=== PATIENT | female | born 1945 | race Caucasian/White ===

== ENCOUNTER 2017-05-20 06:08 | Emergency (ER) | payer MEDICARE, BC ==
[~2017-05-20] VITALS: Ht 167.6 cm; Wt 77.1 kg
[~2017-05-20 06:08] MED LIST: ATORVASTATIN CA20 MG PO; HYDROCHLOROTH12.5 MG PO; SYNTHROID50 MCG PO; VENLAFAXINE HCL75 MG PO
[2017-05-20 07:13] LABS: BASOPHILS # (AUTO) 0.1 (0.0-0.1); EOSINOPHILS # (AUTO) 0.6 (0.0-0.4); EOSINOPHILS % 8.1 % (0.0-6.0); HEMOGLOBIN 11.9 g/dL (12.0-16.0); LYMPHOCYTES # (AUTO) 2.1 (1.0-3.2); LYMPHOCYTES % 29.4 % (18.0-39.1); MEAN CORPUSCULAR HEMOGLOBIN 29.8 pg (28-32); MEAN CORPUSCULAR HGB CONC 33.1 g/dL (31-35); MONOCYTES # (AUTO) 0.5 (0.2-0.8); MONOCYTES % 7.2 % (4.4-11.3); NEUTROPHILS # (AUTO) 3.8 (2.1-6.9); NEUTROPHILS % 54.2 % (38.7-80.0); PLATELET COUNT 314 x10e3/uL (140-360); RED CELL DISTRIBUTION WIDTH 12.1 % (11.7-14.4)
[2017-05-20 07:56] LABS: ALANINE AMINOTRANSFERASE 22 IU/L (0-55); ALBUMIN 3.9 g/dL (3.5-5.0); ALBUMIN/GLOBULIN RATIO 1.1 (0.8-2.0); ALKALINE PHOSPHATASE 81 IU/L (40-150); AMYLASE 46 U/L (25-125); ANION GAP 13.3 mmol/L (8-16); BLOOD UREA NITROGEN 15 mg/dL (7-26); BUN/CREATININE RATIO 17 (6-25); CALCIUM 9.9 mg/dL (8.4-10.2); CARBON DIOXIDE 26 mmol/L (22-29); CHLORIDE 94 mmol/L (98-107); EST GLOMERULAR FILTRATION RATE > 60 ML/MIN (60-); GLUCOSE 102 mg/dL (74-118); LIPASE 12 U/L (8-78); POTASSIUM 3.3 mmol/L (3.5-5.1); SODIUM 130 mmol/L (136-145)
[2017-05-20 08:07] LABS: BILIRUBIN,URINE NEGATIVE (NEGATIVE); KETONES,URINE NEGATIVE (NEGATIVE); LEUKOCYTE ESTERASE ,URINE 2+ (NEGATIVE); NITRITE,URINE NEGATIVE (NEGATIVE); PROTEIN,URINE DIPSTICK NEGATIVE (NEGATIVE); URINE UROBILINOGEN 0.2 mg/dL (0.2 - 1)
[2017-05-20] MEDS ORDERED: KETOROLAC TROMETHAMINE 30 MG/ML VIAL IV STA (08:09)
[2017-05-20] MEDS ORDERED: DEXAMETHASONE SOD PHOS 10 MG/1 ML VIAL IV ONE (08:15)
[2017-05-20] MEDS ORDERED: CYCLOBENZAPRINE HCL 10 MG TAB PO ONE (08:15)
[2017-05-20] MEDS ORDERED: LIDOCAINE 5% PATCH TP SCH (09:00)
[2017-05-20 09:01] LABS: CLARITY,URINE HAZY (CLEAR); COLOR,URINE YELLOW (YELLOW)
--- NOTE | 2017-05-20 09:17 | Diagnostic Imaging Report ---
PROCEDURE:THORACIC SPINE 2VW COMPARISON:None. INDICATIONS:BACK PAIN FINDINGS:There is normal spinal alignment. No compressed vertebral body segments are identified. Minimal spurring of the midthoracic spine with associated disc space narrowing is present at several levels. No acute bony abnormality. No lytic or blastic process. CONCLUSION:Minimal degenerative changes of the midthoracic spine. Kashif Hicks D.O. Dictated by: Kashif Hicks D.O. on 05/20/2017 at 9:17 Electronically approved by: Kashif Hicks D.O. on 05/20/2017 at 9:17
[2017-05-20 09:21] LABS: BACTERIA,URINE RARE /HPF; EPITHELIAL CELLS,URINE RARE /LPF; TRANSITIONAL EPI CELLS,URINE RARE
[2017-05-20] MEDS ORDERED: CEFTRIAXONE SOD 1 GM VIAL IV ONE (09:30)
[2017-05-20] MEDS ORDERED: FENTANYL CITRATE/PF 100MCG/2 ML INJ IV ONE (10:15)
== END 2017-05-20 11:08 | disposition home or self-care (01) ==
LOC: ER 06:08
DX: M54.6 Pain in thoracic spine (principal); M47.894 Other spondylosis, thoracic region
CPT/HCPCS: 36415; 72070; 80053; 81001; 82150; 83690; 85025; 87086; 99284; J0696; J1100; J1885

== ENCOUNTER 2017-06-30 18:49 | Emergency (ER) | payer BC, MEDICARE ==
[~2017-06-30] VITALS: Ht 167.6 cm; Wt 77.1 kg
--- OUTSIDE RECORDS SUMMARY | 2017-06-30 18:52 | XMS REPORT | Clinical Summary ---
Author Author [facility] Organization [facility] Address Unknown Phone Unavailable Care Team Providers Care Presales Consultant Name Role Phone Phi Andrews MD PCP Allergies No Known Allergies Current Medications Prescription Sig. Disp. Refills Start End Date Status Date cholecalciferol, vitamin Take 2,000 Units by mouth Active D3, (VITAMIN D3) 2,000 2 (two) times a day. unit capsule capsule levothyroxine (SYNTHROID, Take 50 mcg by mouth Active LEVOXYL) 50 mcg tablet every morning. !!!!!BRAND NAME ONLY!!!!! acetaminophen (TYLENOL) Take 500 mg by mouth Active 500 MG tablet every 6 (six) hours as needed for mild pain. cefpodoxime (VANTIN) 100 TK 1 T PO Q 12 H 0 05/20/19 Active MG tablet 18 meloxicam (MOBIC) 15 mg TK 1 T PO QD 0 05/20/19 Active tablet 18 methylPREDNISolone TK PO UTD 0 05/20/19 Active (MEDROL DOSEPAK) 4 mg 18 tablet SYNTHROID 50 mcg TAKE 1 TABLET BY MOUTH 30 tablet 3 05/27/19 Active tabletIndications: ONCE EVERY MORNING 18 Acquired hypothyroidism valsartan-hydrochlorothia TAKE 1 TABLET BY MOUTH 30 tablet 3 05/27/19 Active zide (DIOVAN-HCT) DAILY 18 160-12.5 mg per tabletIndications: Essential hypertension atorvastatin (LIPITOR) 20 TAKE 1 TABLET(20 MG) BY 30 tablet 3 Active MG tabletIndications: MOUTH DAILY 18 Hyperlipidemia, unspecified hyperlipidemia type cyclobenzaprine Take 0.5 tablets (5 mg 25 tablet 0 06/11/19 Active (FLEXERIL) 10 mg total) by mouth 2 (two) 18 tabletIndications: Spinal times a day as needed for stenosis of lumbar region muscle spasms. with neurogenic claudication atorvastatin (LIPITOR) 20 Take 1 tablet (20 mg 90 tablet 3 02/13/20 05/01/19 Discontin MG tabletIndications: total) by mouth daily. 16 18 ued Hyperlipidemia, unspecified hyperlipidemia type SYNTHROID 50 mcg Take 1 tablet (50 mcg 90 tablet 3 02/13/20 Discontin tabletIndications: total) by mouth every 16 18 ued Acquired hypothyroidism morning. valsartan-hydrochlorothia Take 1 tablet by mouth 90 tablet 3 02/13/20 05/01/19 Discontin zide (DIOVAN-HCT) daily. 16 18 ued 160-12.5 mg per tabletIndications: Essential hypertension venlafaxine XR Take 1 capsule (75 mg 90 capsule 3 02/13/20 02/13/20 Discontin (EFFEXOR-XR) 75 MG 24 hr total) by mouth daily. 16 17 ued capsuleIndications: Depression, unspecified depression type omeprazole (PriLOSEC) 40 daily. 0 03/15/20 05/09/19 Discontin MG capsule 16 18 ued cholecalciferol, vitamin Take 2,000 Units by mouth 05/09/19 Discontin D3, (VITAMIN D3) 2,000 daily. 18 ued unit capsule capsule venlafaxine XR Take 1 capsule (37.5 mg 30 capsule 0 02/13/20 Discontin (EFFEXOR-XR) 37.5 MG 24 total) by mouth daily. 17 18 ued hr capsuleIndications: Depression, unspecified depression type venlafaxine XR TAKE ONE CAPSULE BY MOUTH 30 capsule 0 04/12/1905/09 Discontin (EFFEXOR-XR) 37.5 MG 24 ONCE DAILY 18 18 ued hr capsuleIndications: Depression, unspecified depression type atorvastatin (LIPITOR) 20 Take 1 tablet (20 mg 90 tablet 1 05/01/19 05/01/19 Discontin MG tabletIndications: total) by mouth daily. 18 18 ued Hyperlipidemia, unspecified hyperlipidemia type valsartan-hydrochlorothia Take 1 tablet by mouth 90 tablet 1 05/01/19 05/01/19 Discontin zide (DIOVAN-HCT) daily. 18 18 ued 160-12.5 mg per tabletIndications: Essential hypertension SYNTHROID 50 mcg Take 1 tablet (50 mcg 90 tablet 1 05/01/19 Discontin tabletIndications: total) by mouth every 18 18 ued Acquired hypothyroidism morning. atorvastatin (LIPITOR) 20 Take 1 tablet (20 mg 30 tablet 0 05/01/19 05/09/19 Discontin MG tabletIndications: total) by mouth daily. 18 18 ued Hyperlipidemia, unspecified hyperlipidemia type SYNTHROID 50 mcg Take 1 tablet (50 mcg 30 tablet 0 05/01/19 Discontin tabletIndications: total) by mouth every 18 18 ued Acquired hypothyroidism morning. valsartan-hydrochlorothia Take 1 tablet by mouth 30 tablet 0 05/01/19 05/09/19 Discontin zide (DIOVAN-HCT) daily. 18 18 ued 160-12.5 mg per tabletIndications: Essential hypertension atorvastatin (LIPITOR) 20 Take 20 mg by mouth 05/27/19 Discontin MG tablet nightly. Default OP ins 18 ued valsartan-hydrochlorothia Take 1 tablet by mouth 05/27/19 Discontin zide (DIOVAN-HCT) nightly. 18 ued 160-12.5 mg per tablet acetaminophen-codeine Take 1 tablet by mouth 30 tablet 0 05/10/19 (TYLENOL WITH CODEINE #3) every 4 (four) hours as 18 18 300-30 mg per tablet needed for moderate pain for up to 10 days. polyethylene glycol Take 17 g by mouth daily 30 packet 0 05/10/19 (MIRALAX) 17 gram packet for 30 days. As needed 18 18 for constipation levoFLOXacin (LEVAQUIN) Take 1 tablet (500 mg 2 tablet 0 05/10/19 500 MG tablet total) by mouth daily for 18 18 2 days. cyclobenzaprine TK 1 T PO Q 12 H 0 05/20/19 06/11/19 Discontin (FLEXERIL) 10 mg tablet 18 18 ued Active Problems Problem Noted Date Status post laparoscopic cholecystectomy 05/28/2017 Symptomatic cholelithiasis 05/09/2017 Pure hypercholesterolemia 02/12/2017 Need for hepatitis C screening test 02/15/2016 Acquired hypothyroidism 02/13/2016 Allergic Depression GERD (gastroesophageal reflux disease) Hyperlipidemia Hypertension Vitamin D deficiency Encounters Date Type Specialty Care Team Description 06/13/2017 Office Visit Orthopedic Surgery David Ramirez MD Lumbago of lumbar region with sciatica (Primary Dx) 06/11/2017 Hospital Radiology David Ramirez MD Spinal stenosis of Encounter thoracic region 06/11/2017 [facility] Radiology David Ramirez MD Spinal stenosis of lumbar Encounter region with neurogenic claudication 06/10/2017 Procedure Pass Radiology 06/10/2017 Procedure Pass Radiology 06/10/2017 Orders Only Orthopedic Surgery Lola Lopez MA Spinal stenosis of lumbar region with neurogenic claudication (Primary Dx) 06/10/2017 Orders Only Orthopedic Surgery Lola Lopez MA Spinal stenosis of thoracic region (Primary Dx); Spinal stenosis of lumbar region with neurogenic claudication 05/29/2017 Patient Quality Candida Del Rosario, RN Outreach 05/27/2017 Office Visit General Surgery Michael Lopez, Status post laparoscopic MD cholecystectomy (Primary Dx) 05/24/2017 Refill Family Medicine Dena Andrews Acquired hypothyroidism; MD Phi Essential hypertension; Hyperlipidemia, unspecified hyperlipidemia type 05/23/2017 Office Visit Orthopedic Surgery David Ramirez MD Bilateral low back pain with bilateral sciatica, unspecified chronicity (Primary Dx) 05/20/2017 Telephone Family Medicine Dena Andrews Left lower quadrant pain MD Phi (Primary Dx); Chronic low back pain, unspecified back pain laterality, with sciatica presence unspecified 05/10/2017 Anesthesia General Surgery João Juarez, CREDIT PRODUCT ANALYST Event 05/10/2017 Procedure Pass General Surgery 05/10/2017 Surgery General Surgery Michael Lopez, CHOLECYSTECTOMY, MD LAPAROSCOPIC 05/09/2017 Emergency General Surgery Candida Adamson-Sarah Smith MD Symptomatic - Jimmy Salamanca MD cholelithiasis (Primary 05/10/2017 Michael Lopez, Dx); Biliary colic 05/09/2017 Office Visit Family Dena Jansen Acute right flank pain MD Phi (Primary Dx) 05/08/2017 Telephone Internal Medicine Fern Andres LVN 05/01/2017 Telephone Family Medicine Dena Andrews HyperlipidemiaPhi MD unspecified hyperlipidemia type; Essential hypertension; Acquired hypothyroidism 04/30/2017 Telephone Family Medicine Dena Andrews MD 04/12/2017 Refill Family Medicine Dena Andrews Depression, unspecified MD Phi depression type 04/10/2017 Hospital Radiology Julian, Dena Breast pain; Encounter MD Phi Breast density 04/10/2017 Hospital Radiology Darryl, Dena Breast pain; Encounter MD Phi Breast density 04/10/2017 Ancillary Access Julian, Dena Breast pain; Orders MD Phi Breast density 04/10/2017 Ancillary Access Darryl Dena Breast pain; Orders MD Phi Breast density 03/11/2017 Transcribe Access Darryl, Dena Breast pain (Primary Dx ); Orders MD Phi Breast density 02/12/2017 Lab Lab Dena Andrews Pure MD Phi hypercholesterolemia; Essential hypertension; Vitamin D deficiency; Acquired hypothyroidism 02/12/2017 Office Visit Family Dena Jansen Annual visit for general MD Phi adult medical examination with abnormal findings (Primary Dx); Immunization due; Breast cancer screening; Osteopenia, unspecified location; Vitamin D deficiency; Pure hypercholesterolemia; Essential hypertension; Acquired hypothyroidism; Left lower quadrant pain; Depression, unspecified depression type 01/04/2017 Telephone Family Medicine Dena Andrews MD 01/01/2017 Orders Only Family Medicine Dena Andrews Acute left flank pain MD Phi (Primary Dx) 12/31/2016 Telephone Family Dena Jansen MD 12/28/2016 Lab Lab Dena Andrews Acute left flank pain; MD Phi Fatigue, unspecified type; Malaise 12/28/2016 Office Visit Family Dena Jansen Acute left flank pain MD Phi (Primary Dx); Fatigue, unspecified type; Malaise after 06/29/2016 Immunizations Name Dates Previously Given Next Due FLUZONE HIGH-DOSE PF 02/12/2017, 02/13/2016 Tdap 01/30/2014 Family History Medical History Relation Name Comments Diabetes Father Heart disease Father Heart attack Maternal Aunt Heart attack Maternal Grandfather Heart attack Maternal Grandmother Stroke Mother Relation Name Status Comments Father Maternal Aunt Maternal Grandfather Maternal Grandmother Mother Social History Tobacco Use Types Packs/Day Years Used Date Never Smoker Smokeless Tobacco: Never Used Alcohol Use Drinks/Week oz/Week Comments Yes drink small amount of wine Sex Assigned at Date Recorded Not on file Last Filed Vital Signs Vital Sign Reading Time Taken Blood Pressure 109/62 05/27/2017 1:47 PM [employer] Pulse 92 05/27/2017 1:47 PM [employer] Temperature 36.3 C (97.3 F) 05/27/2017 1:47 PM [employer] Respiratory Rate 16 05/10/2017 12:51 PM [employer] Oxygen Saturation 100% 05/27/2017 1:47 PM [employer] Inhaled Oxygen - - Concentration Weight 75.7 kg (166 lb 12.8 oz) 05/27/2017 1:47 PM [employer] Height 165.1 cm (5' 5") 05/27/2017 1:47 PM [employer] Body Mass Index 27.76 05/27/2017 1:47 PM [employer] Plan of Treatment Date Type Specialty Care Team Description 07/01/2017 Office Visit Physical Therapy David Ramirez MD [address] [address] [phone] Fransisco Leung, PT 07/03/2017 Office Visit Gastroenterology Fredo Mckeon MD [address] [facility] [address] [place] [address] [phone] 07/05/2017 Office Visit Physical Therapy David Ramirez MD [address] [facility] [address] [place] [address] [phone] Fransisco Leung, PT 07/08/2017 Office Visit Physical Therapy David Ramirez MD [address] [facility] [address] [place] [address] [phone] Fransisco Leung, PT 08/13/2017 Office Visit Family Medicine Dena Andrews MD [address] [facility] [address] [place] [address] Health Maintenance Due Date Last Done Comments COLONOSCOPY 1997 ZOSTER VACCINE 2007 PNEUMOCOCCAL 02/03/2012 POLYSACCHARIDE VACCINE AGE 65 AND OVER PNEUMOCOCCAL-13 02/03/2012 MAMMOGRAM 04/10/2019 04/10/2017, 04/10/2017, 02/04/2014, Additional history exists INFLUENZA VACCINE Completed 02/12/2017, 02/13/2016 Procedures Procedure Name Priority Date/Time Associated Diagnosis Comments CO AN ELECTIVE Routine 05/10/2017 ENDOTRACHEAL AIRWAY 8:31 AM [employer] Procedure Note - João Juarez CRNA - 05/10/2017 8:30 AM [employer]NA[employer]LL[employer] Airway Date/Time: 05/10/2017 8:11 AM Performed by: JOÃO JUAREZ Authorized by: MAU MAY Location: OR Urgency: Elective Difficult Airway: No Preoxygena bryan with 100% O2: Yes C-spine Precaution s Maintained Throughout : Yes Final Airway Type: Endotrache al airway Final Endotrache al Airway: ETT Cuffed: Yes Technique Used: Direct laryngosco py Devices/Me thods Used in Placement: Intubatin g stylet Insertion Site: Oral Blade Type: Malcolm Laryngosco pe Blade/Vide olaryngosc ope Blade Size: 3 ETT Size (mm): 7.0 Cuff at minimum occlusion pressure: Yes Measured from: Lips ETT to Lips (cm): 21 Placement Verified by: CO2 detection Laryngosc opic view: Grade IIb - view of arytenoids or posterior of glottis only Rapid Sequence Induction (RSI): Yes Number of Attempts at Approach: 1 CHOLECYSTECTOMY, 05/10/2017 Cholelithiasis LAPAROSCOPIC 8:15 AM [employer] after 06/29/2016 Results * MRI Lumbar Spine Wo Contrast (06/11/2017 2:30 PM) Specimen Performing Laboratory [address] [address] Narrative EXAMINATION:MRI LUMBAR SPINE WO CONTRAST CLINICAL HISTORY:M48.062 Spinal stenosislumbar region with neurogenic claudication, scs COMPARISON:None. FINDINGS: Lowermost functional disc space is assumed to be L5-S1. Mild retrolisthesis at L4-5. Mild to moderate disc space narrowing at L4-5. There is apposition of multiple spinous processes. No suspicious focal bone marrow lesions. Visualized spinal cord is normal in appearance. L1-2: No canal or foraminal narrowing. L2-3: No canal or foraminal narrowing. L3-4: Left lateral disc bulge causes mild effacement of the fat adjacent to the left L3 nerve root.. No canal or foraminal narrowing. L4-5: Posterior disc bulge and bilateral facet arthropathy. No canal narrowing. Retrolisthesis, facet arthropathy and posterior disc bulge causes mild narrowing of the right foramen. Left lateral disc bulge effaces the fat adjacent exited left L4 nerve root. No significant displacement. L5-S1: Posterior central disc protrusion. No canal narrowing. Bilateral facet arthropathy. Foramina are clear. IMPRESSION: Multilevel degenerative changes without canal or significant foraminal narrowing. Left lateral disc bulges at L3-4 and L4-5 of unclear clinical significance. [id number] Procedure Note Interface, Radiology Results - 06/11/2017 4:01 PM CDT EXAMINATION: MRI LUMBAR SPINE WO CONTRAST CLINICAL HISTORY: M48.062 Spinal stenosis lumbar region with neurogenic claudication, scs COMPARISON: None. FINDINGS: Lowermost functional disc space is assumed to be L5-S1. Mild retrolisthesis at L4-5. Mild to moderate disc space narrowing at L4-5. There is apposition of multiple spinous processes. No suspicious focal bone marrow lesions. Visualized spinal cord is normal in appearance. L1-2: No canal or foraminal narrowing. L2-3: No canal or foraminal narrowing. L3-4: Left lateral disc bulge causes mild effacement of the fat adjacent to the left L3 nerve root.. No canal or foraminal narrowing. L4-5: Posterior disc bulge and bilateral facet arthropathy. No canal narrowing. Retrolisthesis, facet arthropathy and posterior disc bulge causes mild narrowing of the right foramen. Left lateral disc bulge effaces the fat adjacent exited left L4 nerve root. No significant displacement. L5-S1: Posterior central disc protrusion. No canal narrowing. Bilateral facet arthropathy. Foramina are clear. IMPRESSION: Multilevel degenerative changes without canal or significant foraminal narrowing. Left lateral disc bulges at L3-4 and L4-5 of unclear clinical significance. [id number] * MRI Thoracic Spine Wo Contrast (06/11/2017 2:05 PM) Specimen Performing Laboratory [facility] [address] [place] [address] Narrative EXAMINATION:MRI THORACIC SPINE WO CONTRAST CLINICAL HISTORY:M48.04 Spinal stenosisthoracic region, scs COMPARISON:None. TECHNIQUE: Multiplanar MRI imagingwithout IV Gadolinium was performed. FINDINGS: There is normal thoracic kyphosis and alignment. Vertebral bodies are preserved. Bone marrow is unremarkable with no evidence of acute fracture or suspicious marrow-replacing lesion. Intervertebral disc spaces are relatively preserved.The spinal cord is normal in signal and configuration. There is no significant posterior disc pathology, spinal canal or neural foraminal stenosis. Visualized paraspinal soft tissues are unremarkable. Partial imaging of the lower cervical spine demonstrates spondylotic multifactorial cervical canal stenosis at C5-C6 level. IMPRESSION: Unremarkable thoracic spinal MRI with no significant spinal canal or neural foraminal stenosis. [id number] Procedure Note [facility], Radiology Results Incoming - 06/11/2017 3:48 PM CDT EXAMINATION: MRI THORACIC SPINE WO CONTRAST CLINICAL HISTORY: M48.04 Spinal stenosis thoracic region, scs COMPARISON: None. TECHNIQUE: Multiplanar MRI imaging without IV Gadolinium was performed. FINDINGS: There is normal thoracic kyphosis and alignment. Vertebral bodies are preserved. Bone marrow is unremarkable with no evidence of acute fracture or suspicious marrow-replacing lesion. Intervertebral disc spaces are relatively preserved. The spinal cord is normal in signal and configuration. There is no significant posterior disc pathology, spinal canal or neural foraminal stenosis. Visualized paraspinal soft tissues are unremarkable. Partial imaging of the lower cervical spine demonstrates spondylotic multifactorial cervical canal stenosis at C5-C6 level. IMPRESSION: Unremarkable thoracic spinal MRI with no significant spinal canal or neural foraminal stenosis. [id number] * Surgical pathology request (05/10/2017 11:07 AM) Component Value Ref Range Surgical pathology report See link below for PDF Lab Report Result status This is Final Report to [id number] Specimen Performing Laboratory [facility] DEPARTMENT OF PATHOLOGY AND GENOMIC MEDICINE [address] [place] [address] * Estimated GFR (05/10/2017 5:00 AM) Only the most recent of 2 results within the time period is included. Component Value Ref Range GFR Non Af Amer 55 (A) mL/min/1.73 m2 GFR Af Amer 66 mL/min/1.73 m2 Comment: Chronic kidney disease: <60 mL/min/1.73m2 Kidney failure: <15 mL/min/1.73m2 The estimated GFR is calculated from the IDMS-traceable Modification of Diet in Renal Disease Equation. The accuracy of the calculation is poor when the creatinine is normal. Calculated values >90 mL/min/1.73m2 are not reported. This equation has not been validated in children (<18 years), women, the elderly (>70 years), or ethnic groups other than Caucasians and Americans. Specimen Performing Laboratory Plasma specimen [facility] DEPARTMENT OF PATHOLOGY AND GENOMIC MEDICINE [address] [place] [id number] * Partial thromboplastin time, activated (05/10/2017 5:00 AM) Component Value Ref Range PTT 25.6 23.0 - 36.0 sec Comment: PTT therapeutic range for unfractionated heparin is 61.0-112.0 seconds which corresponds to Anti-Xa 0.3-0.7 U/ml. Specimen Performing Laboratory Blood [facility] DEPARTMENT OF PATHOLOGY AND [facility] MEDICINE [address] [place] [address] * Prothrombin time with INR (05/10/2017 5:00 AM) Component Value Ref Range Prothrombin time 13.2 12.0 - 15.0 sec INR 1.0 Comment: The International Normalized Ratio (INR) is a therapeutic monitoring tool for patients who are stable on oral anticoagulant therapy. An INR of 2.0-3.0 is suggested for deep vein thrombosis/pulmonary embolism. Specimen Performing Laboratory Blood [facility] DEPARTMENT OF PATHOLOGY AND [address] [address] * CBC with platelet and differential (05/10/2017 5:00 AM) Only the most recent of 3 results within the time period is included. Component Value Ref Range WBC 5.63 4.50 - 11.00 k/uL RBC 3.98 (L) 4.20 - 5.50 m/uL HGB 11.9 (L) 12.0 - 16.0 g/dL HCT 36.3 (L) 37.0 - 47.0 % MCV 91.2 82.0 - 100.0 fL MCH 29.9 27.0 - 34.0 pg MCHC 32.8 31.0 - 37.0 g/dL RDW - SD 40.7 37.0 - 55.0 fL MPV 10.0 8.8 - 13.2 fL Platelet count 254 150 - 400 k/uL Nucleated RBC 0.00 /100 WBC Neutrophils 44.8 39.0 - 69.0 % Lymphocytes 41.7 25.0 - 45.0 % Monocytes 9.1 0.0 - 10.0 % Eosinophils 2.8 0.0 - 5.0 % Basophils 1.2 (H) 0.0 - 1.0 % Immature granulocytes 0.4Comment: "Immature granulocytes" 0.0 - 1.0 % (promyelocytes, myelocytes, metamyelocytes) Specimen Performing Laboratory Blood [facility] DEPARTMENT OF PATHOLOGY [place] [id number] * Type and screen (05/10/2017 5:00 AM) Component Value Ref Range ABO grouping A Rh type POS Antibody screen (gel) NEG Specimen Performing Laboratory Blood [facility] DEPARTMENT OF PATHOLOGY [place] [id number] * Phosphorus level (05/10/2017 5:00 AM) Component Value Ref Range Phosphorus 2.8 2.4 - 4.5 mg/dL Specimen Performing Laboratory Plasma specimen [facility] DEPARTMENT PATHOLOGY [place] [id number] * Magnesium level (05/10/2017 5:00 AM) Component Value Ref Range Magnesium 2.1 1.6 - 2.4 mg/dL Specimen Performing Laboratory Plasma specimen [facility] DEPARTMENT PATHOLOGY [place] [id number] * Hepatic function panel (05/10/2017 5:00 AM) Component Value Ref Range Albumin 3.8 3.5 - 5.0 g/dL Total bilirubin 0.5 0.0 - 1.2 mg/dL Bilirubin direct <0.2 0.0 - 0.3 mg/dL Alkaline phosphatase 60 35 - 104 U/L Protein 7.0 6.3 - 8.3 g/dL Comment: [place] 4.6-7.0 g/dL 1 week 4.4-7.6 g/dL 7 months-1year 5.1-7.3 g/dL 1-2 years 5.6-7.5 g/dL >3 years 6.0-8.0 g/dL 18-150 6.3-8.3 g/dL ALT 17 5 - 50 U/L AST 23 10 - 35 U/L Specimen Performing Laboratory Plasma specimen [facility] DEPARTMENT PATHOLOGY [place] [id number] * Basic metabolic panel (05/10/2017 5:00 AM) Only the most recent of 2 results within the time period is included. Component Value Ref Range Sodium 137 135 - 148 mEq/L Potassium 3.8 3.5 - 5.0 mEq/L Chloride 99 98 - 112 mEq/L CO2 25 24 - 31 mEq/L Anion gap 13 7 - 15 mEq/L Comment: Starting from June , anion gap calculation no longer incorporates potassium. Please note the change. BUN 13 8 - 23 mg/dL Creatinine 1.0 (H) 0.5 - 0.9 mg/dL Glucose 98 65 - 99 mg/dL Calcium 10.0 8.8 - 10.2 mg/dL Specimen Performing Laboratory Plasma specimen [facility] DEPARTMENT OF PATHOLOGY AND GENOMIC MEDICINE [address] [place] [address] * ECG 12 lead (05/09/2017 8:50 PM) Only the most recent of 2 results within the time period is included. Component Value Ref Range Ventricular rate 79 Atrial rate 79 CO interval 122 QRSD interval 90 QT interval 392 QTC interval 449 P axis 1 37 QRS axis 1 -16 T wave axis 9 EKG impression Normal sinus rhythm-Nonspecific ST abnormality-Abnormal ECG-In automated comparison with ECG of 12-FEB-2017 09:37,-No significant change was found- Specimen Performing Laboratory [facility] [address] [place] [id number] * Urinalysis screen and microscopy, with reflex to culture (05/09/2017 3:20 PM) Component Value Ref Range Specimen site Clean catch Color, UA Straw Appearance, UA Clear Specific gravity, UA 1.011 1.001 - 1.035 pH, UA 7.0 5.0 - 8.5 Protein, UA Negative Negative Glucose, UA Negative Negative Ketones, UA 1+ (A) Negative Bilirubin, UA Negative Negative Blood, UA Negative Negative Nitrite, UA Negative Negative Urobilinogen, UA <2.0 <2.0 Leukocyte esterase, UA Small (A) Negative Epithelial cells, UA <1 /HPF WBC, UA 9 (H) 0 - 4 /HPF RBC, UA 1 0 - 2 /HPF Bacteria, UA Few None seen Yeast, UA None seen Yeast with pseudohyphae, None seen UA Specimen Performing Laboratory Urine [facility] DEPARTMENT OF PATHOLOGY AND GENOMIC MEDICINE [address] [place] [address] * Gram stain (05/09/2017 3:20 PM) Component Value Ref Range Gram stain result Rare WBC's Rare Gram positive cocci in chains Comment: Specimen Information Specimen Source: Urine Specimen Site: Clean catch Specimen Performing Laboratory Urine [facility] DEPARTMENT PATHOLOGY AND [facility] MEDICINE [address] [place] [address] * Urine culture (05/09/2017 3:20 PM) Only the most recent of 2 results within the time period is included. Component Value Ref Range Urine culture isolate Mixed Gram positive jose 10-3 cfu/ml (A) Comment: Specimen Information Specimen Source: Urine Specimen Site: Clean catch Specimen Performing Laboratory Urine [facility] DEPARTMENT OF PATHOLOGY AND [address] [address] * Lipase level (05/09/2017 3:00 PM) Component Value Ref Range Lipase 24 13 - 60 U/L Specimen Performing Laboratory Plasma specimen [facility] PATHOLOGY [address] [address] * Comprehensive metabolic panel (05/09/2017 3:00 PM) Only the most recent of 2 results within the time period is included. Component Value Ref Range Sodium 139 135 - 148 mEq/L Potassium 4.3 3.5 - 5.0 mEq/L Chloride 98 98 - 112 mEq/L CO2 27 24 - 31 mEq/L Anion gap 14 7 - 15 mEq/L Comment: Starting from June , anion gap calculation no longer incorporates potassium. Please note the change. BUN 10 8 - 23 mg/dL Creatinine 1.0 (H) 0.5 - 0.9 mg/dL Glucose 100 (H) 65 - 99 mg/dL Calcium 10.6 (H) 8.8 - 10.2 mg/dL Protein 7.4 6.3 - 8.3 g/dL Comment: [place] 4.6-7.0 g/dL 1 week 4.4-7.6 g/dL 7 months-1year 5.1-7.3 g/dL 1-2 years 5.6-7.5 g/dL >3 years 6.0-8.0 g/dL 18-150 6.3-8.3 g/dL Albumin 4.0 3.5 - 5.0 g/dL A/G ratio 1.2 0.7 - 3.8 Alkaline phosphatase 62 35 - 104 U/L AST 29 10 - 35 U/L ALT 21 5 - 50 U/L Total bilirubin 0.4 0.0 - 1.2 mg/dL Specimen Performing Laboratory Plasma specimen [facility] DEPARTMENT OF PATHOLOGY AND GENOMIC MEDICINE [address] [place] [address] * US Gallbladder (05/09/2017 12:15 PM) Specimen Performing Laboratory [facility] [address] [place] [address] Narrative EXAMINATION:US GALLBLADDER CLINICAL HISTORY:R10.9 Unspecified abdominal pain, RUQ ABD PAIN X 2 DAYS COMPARISON:December 31, 2016 TECHNIQUE: Grayscale 2-D sagittal and axial echo tomograms were performed of the right upper quadrant structures of the abdomen. Color-flow and spectral Doppler images were obtained of the hepatic artery and portal vein. FINDINGS: The liver echotexture is Is homogeneous. No focal lesions are identified. Doppler evaluation of the portal vein demonstrates hepatopedal flow. The maximal transverse diameter of the portal vein is 10 mm. No abnormality of the intrahepatic or extrahepatic biliary tree is seen. The common bile duct measures 3.6 mm which is normal. Low-level echoes are seen layering dependently in the gallbladder towards the neck suspicious for sludge. No calculi, wall thickening, or pericholecystic fluid or positive sonographic Ellis's sign is elicited. IMPRESSION: Abnormal study. Sludge in the gallbladder without evidence of calculi or findings of acute cholecystitis. Otherwise unremarkable. Results were phoned to Dr. Dena Andrews at 12:20 PM May 09, 2017. At the request of Dr. Andrews, the patient was sent back to Dr. Andrews's office. [id number] Procedure Note Hm Interface, Radiology Results Incoming - 05/09/2017 12:25 PM MANAGER DRILLING EXAMINATION: US GALLBLADDER CLINICAL HISTORY: R10.9 Unspecified abdominal pain, RUQ ABD PAIN X 2 DAYS COMPARISON: December 31, 2016 TECHNIQUE: Grayscale 2-D sagittal and axial echo tomograms were performed of the right upper quadrant structures of the abdomen. Color-flow and spectral Doppler images were obtained of the hepatic artery and portal vein. FINDINGS: The liver echotexture is Is homogeneous. No focal lesions are identified. Doppler evaluation of the portal vein demonstrates hepatopedal flow. The maximal transverse diameter of the portal vein is 10 mm. No abnormality of the intrahepatic or extrahepatic biliary tree is seen. The common bile duct measures 3.6 mm which is normal. Low-level echoes are seen layering dependently in the gallbladder towards the neck suspicious for sludge. No calculi, wall thickening, or pericholecystic fluid or positive sonographic Ellis's sign is elicited. IMPRESSION: Abnormal study. Sludge in the gallbladder without evidence of calculi or findings of acute cholecystitis. Otherwise unremarkable. Results were phoned to Dr. Dena Andrews at 12:20 PM May 09, 2017. At the request of Dr. Andrews, the patient was sent back to Dr. Andrews's office. [id number] * CT Renal Stone Protocol (05/09/2017 11:31 AM) Only the most recent of 2 results within the time period is included. Specimen Performing Laboratory [facility] [address] [place] [address] Narrative PROCEDURE:CT RENAL STONE PROTOCOL CLINICAL HISTORY:R10.9 Unspecified abdominal pain, COLICKY RIGHT FLANK PAIN X 2 DAYSPLEASE LOOK AT GALLBLADDER TOO COMPARISON:January 02, 2017 TECHNIQUE: Contiguous 2.5 mm axial images were obtained from the hemidiaphragms to the pubic symphysis without administration of intravenous iodinated or oral contrast media on a multidetector CT scanner using helical scanning technique followed by 2-D sagittal and coronal reconstructions. The dose length product for this procedure was 476 mGy -cm. CT imaging was performed with iterative reconstruction technique and/or automated exposure control to reduce radiation dose. FINDINGS: 1. Lung parenchymal window settings demonstrate no abnormality in the visualized lung bases. 2. A tiny calculus measuring 2 mm is seen in the lower pole of the left kidney as well as in the anterior mid left kidney also measuring 2.5 mm. No dilatation of the pelvicalyceal system is seen. 3. No calculi are demonstrated along the course of the ureters. 4. The enteric tract is generally better evaluated if opacified with enteric contrast. The appendix is Is visualized and is normal.. 5. No abnormality is demonstrated of the remainder of the intra-abdominal solid organs on this unenhanced study. 6. Calcified atheromatous plaque formation is demonstrated in the aortoiliac system without evidence of ectasia or aneurysm.. The IVC is unremarkable on this unenhanced exam. 7. The sagittal and coronal reconstructed images demonstrate disc space narrowing is demonstrated at the L4-L5 level consistent with degenerative disc disease.. CT PELVIS- No calculi are seen in the distal ureters or UV junction. No pelvic fluid collections or masses are seen. IMPRESSION: Abnormal study. Tiny left intrarenal nonobstructing calculi. No evidence of obstructive uropathy. Mild degenerative disc disease at the L4-L5 level. Results were phoned to Dr. Dena Andrews at 11:51 AM May 09, 2017. [id number] . Procedure Note [facility], Radiology Results Incoming - 05/09/2017 11:55 AM MANAGER DRILLING PROCEDURE: CT RENAL STONE PROTOCOL CLINICAL HISTORY: R10.9 Unspecified abdominal pain, COLICKY RIGHT FLANK PAIN X 2 DAYS PLEASE LOOK AT GALLBLADDER TOO COMPARISON: January 02, 2017 TECHNIQUE: Contiguous 2.5 mm axial images were obtained from the hemidiaphragms to the pubic symphysis without administration of intravenous iodinated or oral contrast media on a multidetector CT scanner using helical scanning technique followed by 2-D sagittal and coronal reconstructions. The dose length product for this procedure was 476 mGy -cm. CT imaging was performed with iterative reconstruction technique and/or automated exposure control to reduce radiation dose. FINDINGS: 1. Lung parenchymal window settings demonstrate no abnormality in the visualized lung bases. 2. A tiny calculus measuring 2 mm is seen in the lower pole of the left kidney as well as in the anterior mid left kidney also measuring 2.5 mm. No dilatation of the pelvicalyceal system is seen. 3. No calculi are demonstrated along the course of the ureters. 4. The enteric tract is generally better evaluated if opacified with enteric contrast. The appendix is Is visualized and is normal.. 5. No abnormality is demonstrated of the remainder of the intra-abdominal solid organs on this unenhanced study. 6. Calcified atheromatous plaque formation is demonstrated in the aortoiliac system without evidence of ectasia or aneurysm.. The IVC is unremarkable on this unenhanced exam. 7. The sagittal and coronal reconstructed images demonstrate disc space narrowing is demonstrated at the L4-L5 level consistent with degenerative disc disease.. CT PELVIS- No calculi are seen in the distal ureters or UV junction. No pelvic fluid collections or masses are seen. IMPRESSION: Abnormal study. Tiny left intrarenal nonobstructing calculi. No evidence of obstructive uropathy. Mild degenerative disc disease at the L4-L5 level. Results were phoned to Dr. Dena Andrews at 11:51 AM May 09, 2017. [id number] . * US Breast Complete Bilateral (04/10/2017 11:26 AM) Specimen Performing Laboratory [facility] [address] [place] [address] Narrative PROCEDURE: MAMMO BREAST DIAGNOSTIC TOMOSYNTHESIS BILATERAL, US BREAST COMPLETE BILATERAL Computer aided detection was utilized for the interpretation of the diagnostic mammography. HISTORY:72-year-old female with history of breast pain. Inconclusive mammogram. Microcalcification. R 92.2 COMPARISON: Comparisons from 2002 through 2013. DENSITY: The breast are heterogenously dense, which may obscure small masses. 2-D and 3-D mammography shows no adverse changes. FINDINGS: Extremely dense heterogeneous fibroglandular tissue seen with scattered benign-appearing dystrophic calcification again noted relatively unchanged from prior exam. No sign of any definite mass or abnormal focus of microcalcifications. Bilateral breast ultrasound complete. Scanning in all 4 quadrants and subareolar regions accomplished with close mitigation supervisor supervision. There is scattered shadowing from calcification and some cysts present but no suspicious solid mass. IMPRESSION:Benign findings RECOMMENDATION: Correlation with physical exam and annual mammography. BI-RADS 2: Benign findings. No adverse changes. This faciility is accredited by the [place] [employer] for Mammography. A negative x-ray report should not delay biopsy if a dominant or clinically suspicious mass is present.Not all cancers are identified by x-ray. [facility]-[id number] * Mammo Breast Diagnostic Tomosynthesis Bilateral (04/10/2017 10:36 AM) Specimen Performing Laboratory [facility] [address] [place] [address] Narrative PROCEDURE: MAMMO BREAST DIAGNOSTIC TOMOSYNTHESIS BILATERAL, US BREAST COMPLETE BILATERAL Computer aided detection was utilized for the interpretation of the diagnostic mammography. HISTORY:72-year-old female with history of breast pain. Inconclusive mammogram. Microcalcification. R 92.2 COMPARISON: Comparisons from 2002 through 2013. DENSITY: The breast are heterogenously dense, which may obscure small masses. 2-D and 3-D mammography shows no adverse changes. FINDINGS: Extremely dense heterogeneous fibroglandular tissue seen with scattered benign-appearing dystrophic calcification again noted relatively unchanged from prior exam. No sign of any definite mass or abnormal focus of microcalcifications. Bilateral breast ultrasound complete. Scanning in all 4 quadrants and subareolar regions accomplished with close mitigation supervisor supervision. There is scattered shadowing from calcification and some cysts present but no suspicious solid mass. IMPRESSION:Benign findings RECOMMENDATION: Correlation with physical exam and annual mammography. BI-RADS 2: Benign findings. No adverse changes. This faciility is accredited by the [employer] for Mammography. A negative x-ray report should not delay biopsy if a dominant or clinically suspicious mass is present.Not all cancers are identified by x-ray. [facility]-[id number] * Bone Density (02/12/2017 11:53 AM) Specimen Performing Laboratory [address] [address] Narrative EXAMINATION:BONE DENSITY CLINICAL HISTORY: 72 years Female M89.9 Disorder of boneunspecified, E55.9 Vitamin D deficiencyunspecified, baseline COMPARISON:None. The results of this study expressed as bone mineral density (BMD) were as follows: AP spine (L1-L4) BMD: 1.139 g/cm2 T-Score: -0.4 Z-Score: 0.8 Dual Femur (Total Mean): BMD: 0.952 g/cm2 T-Score: -0.4 Z-Score:0.7 Femur FRAX: Risk factors: History of adult fracture 10 year probability of fracture: 1.Major osteoporotic: 14.9% 2.Hip: 1.8% 3.Based on femur right neck BMD Impression: 1.WHO classification normal based on T-scores above. Notes: *The world health organization (WHO) has classified the patient's T-score as follows: At or above (-1) as normal (-1) to (-2.5) as low (osteopenia) At or below (-2.5) as abnormally low (osteoporosis, increased fracture risk) For premenopausal women, men under the age 50 years, and children the WHO classification does not apply. In these individuals please assess bone mineral density with Z scores for each skeletal site examined. Z scores above -2.0: Within expected range for age. Z scores lower than -2.0:Low bone density for age. The TBS is derived from the texture of the DEXA image and has been shown to be related to bone microarchitecture and fracture risk. This data provides information independent of BMD value; is used as a complement to the data obtained from the DEXA analysis and the clinical examination. The TBS can assist the healthcare professional in assessment of fracture risk and in monitoring the effect of treatments on patient over time. [facility]-[id number] Procedure Note Hm Interface, Radiology Results Incoming - 02/12/2017 2:19 PM MANAGER DRILLING EXAMINATION: BONE DENSITY CLINICAL HISTORY: 72 years Female M89.9 Disorder of bone unspecified, E55.9 Vitamin D deficiency unspecified, baseline COMPARISON: None. The results of this study expressed as bone mineral density (BMD) were as follows: AP spine (L1-L4) BMD: 1.139 g/cm2 T-Score: -0.4 Z-Score: 0.8 Dual Femur (Total Mean): BMD: 0.952 g/cm2 T-Score: -0.4 Z-Score: 0.7 Femur FRAX: Risk factors: History of adult fracture 10 year probability of fracture: 1. Major osteoporotic: 14.9% 2. Hip: 1.8% 3. Based on femur right neck BMD Impression: 1. WHO classification normal based on T-scores above. Notes: *The world health organization (WHO) has classified the patient's T-score as follows: At or above (-1) as normal (-1) to (-2.5) as low (osteopenia) At or below (-2.5) as abnormally low (osteoporosis, increased fracture risk) For premenopausal women, men under the age 50 years, and children the WHO classification does not apply. In these individuals please assess bone mineral density with Z scores for each skeletal site examined. Z scores above -2.0: Within expected range for age. Z scores lower than -2.0: Low bone density for age. The TBS is derived from the texture of the DEXA image and has been shown to be related to bone microarchitecture and fracture risk. This data provides information independent of BMD value; is used as a complement to the data obtained from the DEXA analysis and the clinical examination. The TBS can assist the healthcare professional in assessment of fracture risk and in monitoring the effect of treatments on patient over time. [facility]-[id number] * Microscopic Examination (02/12/2017 9:47 AM) Only the most recent of 2 results within the time period is included. Component Value Ref Range WBC, UA 0-5 0 - 5 /hpf RBC, UA 0-2 0 - 2 /hpf Epithelial cells (non 0-10 0 - 10 /hpf renal) Casts Present (A) None seen /lpf Cast type Hyaline casts N/A Mucus, UA Present Not Estab. Bacteria, UA None seen None seen/Few Specimen Performing Laboratory [facility] Narrative Performed at:[address] [place], [place] [id number] [employer] T[employer]: Bebeto Rachel MD, Phone:[phone] * Vitamin D 25 hydroxy level (02/12/2017 9:47 AM) Component Value Ref Range Vitamin D, 25-hydroxy 25.3 (L) 30.0 - 100.0 ng/mL Comment: Vitamin D deficiency has been defined by the [place] of Medicine and an Endocrine Society practice guideline as a level of serum 25-OH vitamin D less than 20 ng/mL (1,2). The Endocrine Society went on to further define vitamin D insufficiency as a level between 21 and 29 ng/mL (2). 1. IOM ([place] of Medicine). 2010. Dietary reference intakes for calcium and D. Law [place]: The National Academies Press. 2. Matilde MF, Ramses NC, Hiro MARCUS, et al. Evaluation, treatment, and prevention of vitamin D deficiency: an Endocrine Society clinical practice guideline. JCEM. 2010; 96(7):1911-30. Specimen Performing Laboratory Blood [facility] Narrative Performed at:[address] [place], [place] [id number] [employer]: Bebeto Rachel MD, Phone:[phone] * Urinalysis, automated with microscopy (02/12/2017 9:47 AM) Only the most recent of 2 results within the time period is included. Component Value Ref Range Specific gravity, urine 1.016 1.005 - 1.030 pH, urine 6.5 5.0 - 7.5 Color, UA Yellow Yellow Appearance Clear Clear WBC esterase, urine 2+ (A) Negative Protein, UA Negative Negative/Trace Glucose, urine Negative Negative Ketones, UA Negative Negative Occult blood, urine Negative Negative Bilirubin, UA Negative Negative Urobilinogen, UA 0.2 0.2 - 1.0 mg/dL Nitrite, UA Negative Negative Microscopic examination See below:Comment: Microscopic was indicated and was performed. Specimen Performing Laboratory Blood [facility] Narrative Performed at:[address] [place], [place] [id number] [employer]: Bebeto Rachel MD, Phone:[phone] * Thyroid stimulating hormone (02/12/2017 9:47 AM) Component Value Ref Range TSH 0.998 0.450 - 4.500 uIU/mL Specimen Performing Laboratory Blood [facility] Narrative Performed at:[id number] [employer]: Bebeto Rachel MD, Phone:[phone] * Creatine kinase, total (CPK) (02/12/2017 9:47 AM) Component Value Ref Range Creatine kinase 76 24 - 173 U/L Specimen Performing Laboratory Blood [facility] Narrative Performed at:[id number] [employer]: Bebeto Rachel MD, Phone:[phone] * Lipid panel (02/12/2017 9:47 AM) Component Value Ref Range Cholesterol 198 100 - 199 mg/dL Triglycerides 144 0 - 149 mg/dL HDL cholesterol 62 >39 mg/dL VLDL cholesterol rafiq 29 5 - 40 mg/dL LDL cholesterol 107 (H) 0 - 99 mg/dL calculated Non-HDL cholesterol 136 (H) 0 - 129 mg/dL Specimen Performing Laboratory Blood [facility] Narrative Performed at:[id number] [employer]: Bebeto Rachel MD, Phone:[phone] * US Abdomen Complete (12/31/2016 11:17 AM) Specimen Performing Laboratory [address] [address] Narrative Examination: US ABDOMEN COMPLETE Clinical history: R10.9 Unspecified abdominal pain, R53.83 Other fatigue, ABDOMINAL PAIN, pain and tenderness in L flankLLQsuprapubicand periumbilical areas Comparison: None IMPRESSION:Transverse and longitudinal sonographic images were obtained through the abdomen. 1.The gallbladder appears normal without evidence of calculus, pericholecystic fluid, or gallbladder wall thickening.The common ductis within normal limits at 0.6 cm. 2.The liver appears normal. The portal vein is patent.The spleen is not enlarged. 3.The right kidney measures 9.0 and left kidney 9.9 cm in length. The kidneys demonstrate a normal sonographic appearance. 4.The visualized pancreas, abdominal aorta, and inferior vena cava are unremarkable. 5.There is no suspicious fluid. Conclusion: No acute findings. Please see above. Abdominal ultrasound measurement guidelines *Liver: Abnormal > 15.5 cm (craniocaudal dimension at the midclavicular line ) *Spleen:Abnormal > 13 cm *GB: Abnormal > 9 x 4 cm (longitudinal and transverse dimensions) *Gallbladder wall thickness: Abnormal > 3 mm *CBD with GB: Abnormal > 6 mm (under 60 years of age. Allowed 1 additional millimeter per decade after 60) *CBD without GB: Abnormal > 10 mm *Kidneys: Abnormal < 9 cm or > 13 cm *Aorta: Ectatic if 2.5 - 2.9 cm *Aorta: Aneurysmal if > 3 cm Portal vein: Abnormal > 1.3 cm (varying measurement dependent upon hydration status and respiration) [facility]-[id number] Procedure Note Hm Interface, Radiology Results Incoming - 12/31/2016 11:55 AM CDT Examination: US ABDOMEN COMPLETE Clinical history: R10.9 Unspecified abdominal pain, R53.83 Other fatigue, ABDOMINAL PAIN, pain and tenderness in L flank LLQ suprapubic and periumbilical areas Comparison: None IMPRESSION: Transverse and longitudinal sonographic images were obtained through the abdomen. 1. The gallbladder appears normal without evidence of calculus, pericholecystic fluid, or gallbladder wall thickening. The common duct is within normal limits at 0.6 cm. 2. The liver appears normal. The portal vein is patent. The spleen is not enlarged. 3. The right kidney measures 9.0 and left kidney 9.9 cm in length. The kidneys demonstrate a normal sonographic appearance. 4. The visualized pancreas, abdominal aorta, and inferior vena cava are unremarkable. 5. There is no suspicious fluid. Conclusion: No acute findings. Please see above. Abdominal ultrasound measurement guidelines * Liver: Abnormal > 15.5 cm (craniocaudal dimension at the midclavicular line) * Spleen: Abnormal > 13 cm * GB: Abnormal > 9 x 4 cm (longitudinal and transverse dimensions) * Gallbladder wall thickness: Abnormal > 3 mm * CBD with GB: Abnormal > 6 mm (under 60 years of age. Allowed 1 additional millimeter per decade after 60) * CBD without GB: Abnormal > 10 mm * Kidneys: Abnormal < 9 cm or > 13 cm * Aorta: Ectatic if 2.5 - 2.9 cm * Aorta: Aneurysmal if > 3 cm Portal vein: Abnormal > 1.3 cm (varying measurement dependent upon hydration status and respiration) [id number] * C-reactive protein (12/28/2016 3:25 PM) Component Value Ref Range CRP 0.9 0.0 - 4.9 mg/L Specimen Performing Laboratory Blood [facility] Narrative Performed at:[address], [id number] [employer]: Bebeto Rachel MD, Phone:[phone] * POC urinalysis dipstick (12/28/2016 3:13 PM) Component Value Ref Range Color urine, POC Dark Yellow Clarity urine, POC Clear Glucose urine, POC Negative Negative Bilirubin urine, POC Negative Negative Ketones urine, POC Negative Negative Specific gravity urine, 1.015 1.005 - 1.030 POC Blood urine, POC Trace (A) Negative pH urine, POC 6.0 5.0, 5.5, 6.0, 6.5, 7.0, 7.5, 8.0, 8.5 Protein urine, POC Negative Negative Urobilinogen urine, POC 2.0 (A) <2.0 Nitrite urine, POC Negative Negative Leukocyte esterase urine, Small (A) Negative POC Specimen Performing Laboratory Urine after 06/29/2016 Insurance Payer Benefit Subscriber ID Type Phone Address Plan / Group MEDICARE MEDICARE xxxxxxxxxx Medicare [place], [place] PART A AND B BCBS BCBS xxxxxxxxxxxx Indemnity PAR/[place] [address]
--- OUTSIDE RECORDS SUMMARY | 2017-06-30 18:52 | XMS REPORT ---
[facility] Address Unknown Phone Unavailable Care Team Providers Care Instrumentation Chemist Name Role Phone DENZEL RAMIREZ Unavailable Unavailable Problems This patient has no known problems. Allergies, Adverse Reactions, Alerts This patient has no known allergies or adverse reactions. Medications This patient has no known medications. Results Test Description Test Time Test Comments Text Results Atomic Results Result Comments THORACIC SPINE 2VW [place] [address] Patient Name: SEGUNDO HAWKINS MR #: [id number] : 1945 Age/Sex: 72/F Req #: [id number] [facility] Physician: Ordered by: DENZEL RAMIREZ MD Report #: [id number] Location: ER Room/Bed: Procedure: [id number] DX/THORACIC SPINE 2VW Exam Date: 05/20/17 Exam Time: 0830 REPORT STATUS: Signed PROCEDURE: THORACIC SPINE 2VW COMPARISON: None. INDICATIONS: BACK PAIN FINDINGS: There is normal spinal alignment. No compressed vertebral body segments are identified. Minimal spurring of the midthoracic spine with associated disc space narrowing is present at several levels. No acute bony abnormality. No lytic or blastic process. CONCLUSION: Minimal degenerative changes of the midthoracic spine. Naila Eubanks D.O. Dictated by: Naila Eubanks D.O. on 05/20/2017 at 9:17 Electronically approved by: Naila Eubanks D.O. on 05/20/2017 at 9:17 Dictated By: NAILA EUBANKS DO 6 COPY TO: DENZEL RAMIREZ MD
[2017-06-30 19:40] LABS: CLARITY,URINE CLEAR (CLEAR); COLOR,URINE YELLOW (YELLOW)
[2017-06-30 19:41] LABS: LEUKOCYTE ESTERASE ,URINE TRACE (NEGATIVE); NITRITE,URINE NEGATIVE (NEGATIVE)
[2017-06-30 19:42] LABS: BILIRUBIN,URINE 1+ (NEGATIVE); KETONES,URINE TRACE (NEGATIVE); PROTEIN,URINE DIPSTICK TRACE (NEGATIVE); URINE UROBILINOGEN 0.2 mg/dL (0.2 - 1)
[2017-06-30 19:53] LABS: RBC,URINE 0-5 /HPF (0-5)
[2017-06-30 19:54] LABS: BACTERIA,URINE FEW /HPF; EPITHELIAL CELLS,URINE FEW /LPF; TRANSITIONAL EPI CELLS,URINE FEW
[2017-06-30] MEDS ORDERED: CEFTRIAXONE SOD 1 GM VIAL IM ONE (20:00)
[2017-06-30] MEDS ORDERED: TRAMADOL HCL 50 MG TAB PO ONE (20:00)
[2017-06-30 20:25] VITALS: BP 134/93
== END 2017-06-30 21:09 | disposition home or self-care (01) ==
LOC: ER 18:49
DX: M54.30 Sciatica, unspecified side (principal); R30.0 Dysuria; N39.0 Urinary tract infection, site not specified
CPT/HCPCS: 81001; 87086; 96372; 99284; J0696